=== PATIENT | male | born 1970 | race African-American/Black ===

== ENCOUNTER 2017-06-17 00:38 | Emergency (ER) | payer OTHER ==
[2017-06-17 02:31] VITALS: BP 139/72; PULSE 76; TEMP 98.1; BMI 28.0
[2017-06-17] MEDS ORDERED: IBUPROFEN 600 MG TABLET (FP) PO ONE ×2 (03:43→04:07)
--- NOTE | 2017-06-17 03:43 | PDOC ---
History of Present Illness - General Chief Complaint: Pain Stated Complaint: LFT FOOT PAIN Time Seen by Provider: 06/17/17 03:34 - History of Present Illness Initial Comments: 06/17/17 03:47 Patient is a 47-year-old male with no past medical history who presents to the emergency department [facility] complaining of left foot pain. Patient states he was working out earlier this evening when he dropped a 40 pound weight on his left foot. He states that his fourth and third left toes hurt the most. Did not take any medication for pain. States that he was able to walk to the hospital [facility]. Denies numbness, tingling, fevers, chills, unsteady gait, ankle pain. Past History - Past Medical History Allergies/Adverse Reactions: Allergies Allergy/AdvReac Type Severity Reaction Status Date / Time No Known Allergies Allergy Verified 06/17/17 02:28 Home Medications: Ambulatory Orders NK [No Known Home Medication] 06/17/17 - Psycho/Social/Smoking Cessation Hx Anxiety: No Suicidal Ideation: No Smoking History: Never smoked Have you smoked in the past 12 months: No Number of Cigarettes Smoked Daily: 0 Information on smoking cessation initiated: No Hx Alcohol Use: No Drug/Substance Use Hx: No Review of Systems - Review of Systems Able to Perform ROS?: Yes Comments:: 06/17/17 03:50 CONSTITUTIONAL: Absent: fever, chills, diaphoresis, generalized weakness, malaise, loss of appetite MUSCULOSKELETAL: Positive: L toe pain. Absent: myalgia, arthralgia, joint swelling SKIN: Positve: bruising L toes. Absent: rash, itching, pallor HEMATOLOGIC/IMMUNOLOGIC: Absent: easy bleeding, easy bruising, lymphadenopathy, frequent infections NEUROLOGIC: Absent: headache, focal weakness or paresthesias, dizziness, unsteady gait, seizure, mental status changes, bladder or bowel incontinence Is the patient limited Iranian proficient: No *Physical Exam - Vital Signs Last Vital Signs Temp Pulse Resp BP Pulse Ox 98.1 F 76 14 139/72 100 06/17/17 02:28 06/17/17 02:28 06/17/17 02:28 06/17/17 02:28 06/17/17 02:28 - Physical Exam Comments: 06/17/17 05:49 GENERAL: Well developed, well nourished. Awake and alert. No acute distress. MUSCULOSKELETAL TTP of 3rd and 4th L toes. Normal range of motion at all joints. No bony deformities. No CVA tenderness. EXTREMITIES: No cyanosis. No clubbing. No edema. No calf tenderness. 2+ DP pulses. SKIN: Bruising of the 3rd and 4th left toes. Warm and dry. Normal capillary refill. No rashes. No jaundice. NEUROLOGICAL: Alert, awake, appropriate. Cranial nerves 2-12 intact. No deficits to light touch and temperature in face, upper extremities and lower extremities. No motor deficits in the in face, upper extremities and lower extremities. Normoreflexic in the upper and lower extremities. Normal speech. Toes are down- going bilaterally. Gait is normal without ataxia. Medical Decision Making - Medical Decision Making 06/17/17 03:47 Patient is a 47-year-old male with no past medical history who presents to the emergency department tonight complaining of left foot pain. Given the trauma we will order left foot and ankle x-ray to rule out fracture. We'll give patient ibuprofen. Reevaluate. 06/17/17 05:21 X-ray shows no acute fracture in the toes or foot. We will discharge home at this time. Patient is to ice his toes and micah tape them for comfort. He may take ibuprofen as needed for pain. Patient understands all discharge instructions and all questions were answered at this time. *DC/Admit/Observation/Transfer Diagnosis at time of Disposition: Toe pain, left - Discharge Dispostion Admit: No - Referrals Referrals: Jake Carlton MD, MD [Primary Care Provider] - Ney Cruz MD [Staff Physician] - - Patient Instructions Additional Instructions: Your x-ray today was negative for any fracture. Ice the area and elevate the foot to prevent swelling of the toes. If there is persistant pain you may micah tape the toes as well. You may take tylenol or motrin as needed for pain. Follow up with your primary care doctor within the week. If your pain does not go away, call orthopedics for an appointment. Return to the ED if you have worsening pain, cannot walk, develop fevers or chills or have any changes in your symptoms
== END 2017-06-17 05:25 | disposition home or self-care (01) ==
LOC: JER 00:38
DX: S92.535A Nondisplaced fracture of distal phalanx of left lesser toe(s), initial encounter for closed fracture (principal); W21.89XA Striking against or struck by other sports equipment, initial encounter; Y93.B3 Activity, free weights; Y92.89 Other specified places as the place of occurrence of the external cause; Y99.8 Other external cause status
CPT/HCPCS: 73610-TC-LT; 73630-TC-LT; 99281-25